=== PATIENT | male | born 1985 | race Caucasian/White ===

== ENCOUNTER 2019-12-21 11:08 | Emergency (ER) | payer BC, OTHER ==
[~2019-12-21] VITALS: Ht 182.9 cm; Wt 127.0 kg
--- NOTE | 2019-12-21 11:26 | NUR ---
ARTISTS' MODEL AT BEDSIDE FOR BLOOD DRAWN.
[2019-12-21 11:32] VITALS: BP 144/100
--- NOTE | 2019-12-21 11:32 | NUR ---
Patient discharged to home in stable condition. Written and verbal after care instructions given. Patient verbalizes understanding of instruction.
[2019-12-22 05:09] LABS: HIV SCRN 4G wRFX Non Reactive (Non Reactive)
== END 2019-12-21 11:32 | disposition home or self-care (01) ==
LOC: ER 11:12
DX: S61.239A Puncture wound without foreign body of unspecified finger without damage to nail, initial encounter (principal); W46.0XXA Contact with hypodermic needle, initial encounter; Y93.89 Activity, other specified; Y92.89 Other specified places as the place of occurrence of the external cause; Y99.8 Other external cause status
CPT/HCPCS: 36415; 86706; 86803

== ENCOUNTER 2019-12-27 18:12 | Emergency (ER) | payer OTHER ==
[~2019-12-27] VITALS: Ht 182.9 cm; Wt 122.5 kg
[2019-12-27 18:17] VITALS: BP 151/92
--- NOTE | 2019-12-27 18:30 | NUR ---
COVID SWAB OBTAINED AND SENT TO LAB.
--- NOTE | 2019-12-27 18:35 | NUR ---
Patient discharged to home in stable condition. Written and verbal after care instructions given. Patient verbalizes understanding of instruction.
== END 2019-12-27 18:46 | disposition home or self-care (01) ==
LOC: ER 18:16
DX: Z03.818 Encounter for observation for suspected exposure to other biological agents ruled out (principal); I10 Essential (primary) hypertension; Z87.891 Personal history of nicotine dependence
CPT/HCPCS: 99283; U0003

== ENCOUNTER 2020-01-23 13:13 | Emergency (ER) | payer OTHER ==
[~2020-01-23] VITALS: Ht 182.9 cm; Wt 122.5 kg
[2020-01-23 13:19] VITALS: BP 135/80
--- NOTE | 2020-01-23 13:52 | NUR ---
PT SWABBED FOR COVID19 TEST. D/C IN STABLE CONDITION.
[2020-01-24 08:15] LABS: HIV SCRN 4G wRFX Non Reactive (Non Reactive)
== END 2020-01-23 13:54 | disposition home or self-care (01) ==
LOC: ER 13:15
DX: Z11.59 Encounter for screening for other viral diseases (principal); T14.8XXD Other injury of unspecified body region, subsequent encounter; W26.8XXD Contact with other sharp object(s), not elsewhere classified, subsequent encounter; Z77.21 Contact with and (suspected) exposure to potentially hazardous body fluids
CPT/HCPCS: 36415; 86706; 86803; 87389; 99283; C9803; U0003

== ENCOUNTER 2020-02-03 17:03 | Emergency (ER) | payer OTHER ==
[~2020-02-03] VITALS: Ht 182.9 cm; Wt 122.5 kg
[2020-02-03 17:13] VITALS: BP 167/97
--- NOTE | 2020-02-03 17:25 | NUR ---
COVID SWAB DONE AND SENT TO LAB
--- NOTE | 2020-02-03 17:26 | NUR ---
Patient discharged to home in stable condition. Written and verbal after care instructions given. Patient verbalizes understanding of instruction. Pt ambulatory with a steady gait
== END 2020-02-03 17:27 | disposition home or self-care (01) ==
LOC: ER 17:04
DX: Z11.59 Encounter for screening for other viral diseases (principal); I10 Essential (primary) hypertension
CPT/HCPCS: 99283; C9803; U0003

== ENCOUNTER 2020-02-15 10:58 | Emergency (ER) | payer OTHER ==
[~2020-02-15] VITALS: Ht 182.9 cm; Wt 122.5 kg
[2020-02-15 11:12] VITALS: BP 145/80
== END 2020-02-15 13:13 | disposition home or self-care (01) ==
LOC: ER 10:59
DX: Z11.59 Encounter for screening for other viral diseases (principal)
CPT/HCPCS: 99283; C9803; U0003

== ENCOUNTER 2020-02-20 16:07 | Emergency (ER) | payer OTHER ==
[~2020-02-20] VITALS: Ht 182.9 cm; Wt 122.5 kg
[2020-02-20 16:12] VITALS: BP 166/87
--- NOTE | 2020-02-20 16:34 | NUR ---
Patient discharged to home in stable condition. Written and verbal after care instructions given. Patient verbalizes understanding of instruction.
== END 2020-02-20 16:34 | disposition home or self-care (01) ==
LOC: ER 16:07
DX: Z11.59 Encounter for screening for other viral diseases (principal); I10 Essential (primary) hypertension
CPT/HCPCS: 99283; C9803; U0003

== ENCOUNTER 2020-02-29 09:14 | Emergency (ER) | payer OTHER ==
[~2020-02-29] VITALS: Ht 182.9 cm; Wt 122.5 kg
[2020-02-29 09:19] VITALS: BP 145/82
== END 2020-02-29 09:41 | disposition home or self-care (01) ==
LOC: ER 09:15
DX: Z03.818 Encounter for observation for suspected exposure to other biological agents ruled out (principal); I10 Essential (primary) hypertension
CPT/HCPCS: 99283; C9803; U0003

== ENCOUNTER 2020-03-05 13:45 | Emergency (ER) | payer OTHER ==
[~2020-03-05] VITALS: Ht 182.9 cm; Wt 90.7 kg
[2020-03-05 13:48] VITALS: BP 145/81
--- NOTE | 2020-03-05 14:05 | NUR ---
Patient discharged to home in stable condition. Written and verbal after care instructions given. Patient verbalizes understanding of instruction.
== END 2020-03-05 14:05 | disposition home or self-care (01) ==
LOC: ER 13:45
DX: Z03.818 Encounter for observation for suspected exposure to other biological agents ruled out (principal); I10 Essential (primary) hypertension
CPT/HCPCS: 99283; C9803; U0003

== ENCOUNTER 2020-03-14 14:50 | Emergency (ER) | payer OTHER ==
[~2020-03-14] VITALS: Ht 182.9 cm; Wt 124.7 kg
[2020-03-14 14:54] VITALS: BP 146/85
== END 2020-03-14 15:10 | disposition home or self-care (01) ==
LOC: ER 14:52
DX: Z20.828 Contact with and (suspected) exposure to other viral communicable diseases (principal); I10 Essential (primary) hypertension
CPT/HCPCS: 99283; C9803; U0003

== ENCOUNTER 2020-03-28 09:03 | Emergency (ER) | payer OTHER ==
[~2020-03-28] VITALS: Ht 182.9 cm; Wt 122.5 kg
[2020-03-28 09:06] VITALS: BP 135/84
== END 2020-03-28 09:33 | disposition home or self-care (01) ==
LOC: ER 09:04
DX: Z20.828 Contact with and (suspected) exposure to other viral communicable diseases (principal)
CPT/HCPCS: 99283; C9803; U0003

== ENCOUNTER 2020-04-02 15:43 | Emergency (ER) | payer OTHER ==
[~2020-04-02] VITALS: Ht 182.9 cm; Wt 122.5 kg
[2020-04-02 15:47] VITALS: BP 133/88
== END 2020-04-02 16:15 | disposition home or self-care (01) ==
LOC: ER 15:44
DX: Z20.828 Contact with and (suspected) exposure to other viral communicable diseases (principal); I10 Essential (primary) hypertension
CPT/HCPCS: 99283; C9803; U0003

== ENCOUNTER 2020-04-15 11:26 | Emergency (ER) | payer OTHER ==
[~2020-04-15] VITALS: Ht 182.9 cm; Wt 124.7 kg
[2020-04-15 11:27] VITALS: BP 135/81
--- NOTE | 2020-04-15 11:56 | NUR ---
COVID TEST COMPLETED SENT TO LAB Patient discharged to home in stable condition. Written and verbal after care instructions given. Patient verbalizes understanding of instruction.
== END 2020-04-15 11:58 | disposition home or self-care (01) ==
LOC: ER 11:28
DX: Z20.828 Contact with and (suspected) exposure to other viral communicable diseases (principal); I10 Essential (primary) hypertension
CPT/HCPCS: 99283; C9803; U0003

== ENCOUNTER 2020-04-30 15:16 | Emergency (ER) | payer OTHER ==
[~2020-04-30] VITALS: Ht 182.9 cm; Wt 122.5 kg
[2020-04-30 15:19] VITALS: BP 132/86
== END 2020-04-30 15:38 | disposition home or self-care (01) ==
LOC: ER 15:16
DX: Z20.828 Contact with and (suspected) exposure to other viral communicable diseases (principal); I10 Essential (primary) hypertension
CPT/HCPCS: 99283; C9803; U0003

== ENCOUNTER 2020-05-09 10:19 | Emergency (ER) | payer OTHER ==
[~2020-05-09] VITALS: Ht 182.9 cm; Wt 122.5 kg
[2020-05-09 10:21] VITALS: BP 137/88
== END 2020-05-09 11:41 | disposition home or self-care (01) ==
LOC: ER 10:20
DX: Z20.828 Contact with and (suspected) exposure to other viral communicable diseases (principal); I10 Essential (primary) hypertension
CPT/HCPCS: 99283; C9803; U0003

== ENCOUNTER 2020-05-14 15:47 | Emergency (ER) | payer OTHER ==
[~2020-05-14] VITALS: Ht 182.9 cm; Wt 122.5 kg
[2020-05-14 15:54] VITALS: BP 132/84
--- NOTE | 2020-05-14 16:16 | NUR ---
COVID SWAB SENT. Patient discharged to home in stable condition. Written and verbal after care instructions given. Patient verbalizes understanding of instruction.
== END 2020-05-14 16:18 | disposition home or self-care (01) ==
LOC: ER 15:49
DX: Z20.828 Contact with and (suspected) exposure to other viral communicable diseases (principal); I10 Essential (primary) hypertension
CPT/HCPCS: 99283; C9803; U0003

== ENCOUNTER 2020-05-23 09:12 | Emergency (ER) | payer OTHER ==
[~2020-05-23] VITALS: Ht 182.9 cm; Wt 121.1 kg
[2020-05-23 09:12] VITALS: BP 127/76
== END 2020-05-23 09:23 | disposition home or self-care (01) ==
LOC: ER 09:13
DX: Z20.828 Contact with and (suspected) exposure to other viral communicable diseases (principal)
CPT/HCPCS: 99283; C9803; U0003

== ENCOUNTER 2020-05-28 11:09 | Emergency (ER) | payer OTHER ==
[~2020-05-28] VITALS: Ht 170.2 cm; Wt 90.7 kg
[2020-05-28 11:14] VITALS: BP 124/77
--- NOTE | 2020-05-28 11:30 | NUR ---
covid swab done and sent to lab
--- NOTE | 2020-05-28 11:31 | NUR ---
Patient discharged to home in stable condition. Written and verbal after care instructions given. Patient verbalizes understanding of instruction. Pt ambulatory with a steady gait
== END 2020-05-28 11:31 | disposition home or self-care (01) ==
LOC: ER 11:11
DX: Z20.828 Contact with and (suspected) exposure to other viral communicable diseases (principal); I10 Essential (primary) hypertension
CPT/HCPCS: 99283; C9803; U0003

== ENCOUNTER 2020-06-06 08:38 | Emergency (ER) | payer OTHER ==
[~2020-06-06] VITALS: Ht 182.9 cm; Wt 122.5 kg
[2020-06-06 08:38] VITALS: BP 132/84
== END 2020-06-06 08:58 | disposition home or self-care (01) ==
LOC: ER 08:45
DX: Z20.828 Contact with and (suspected) exposure to other viral communicable diseases (principal); I10 Essential (primary) hypertension
CPT/HCPCS: 99283; C9803; U0003

== ENCOUNTER 2020-06-11 09:01 | Emergency (ER) | payer OTHER ==
[~2020-06-11] VITALS: Ht 182.9 cm; Wt 122.5 kg
[2020-06-11 09:03] VITALS: BP 137/84
--- NOTE | 2020-06-11 09:22 | NUR ---
Covid swab sent, Patient discharged to home in stable condition. Written and verbal after care instructions given. Patient verbalizes understanding of instruction.
== END 2020-06-11 09:23 | disposition home or self-care (01) ==
LOC: ER 09:04
DX: Z20.828 Contact with and (suspected) exposure to other viral communicable diseases (principal); I10 Essential (primary) hypertension
CPT/HCPCS: 99283; C9803; U0003

== ENCOUNTER 2020-06-25 10:39 | Emergency (ER) | payer OTHER ==
[~2020-06-25] VITALS: Ht 182.9 cm; Wt 122.5 kg
[2020-06-25 10:42] VITALS: BP 137/86
== END 2020-06-25 11:05 | disposition home or self-care (01) ==
LOC: ER 10:44
DX: Z20.828 Contact with and (suspected) exposure to other viral communicable diseases (principal); I10 Essential (primary) hypertension
CPT/HCPCS: 99283; C9803; U0003

== ENCOUNTER 2020-06-30 09:52 | Emergency (ER) | payer OTHER ==
[~2020-06-30] VITALS: Ht 185.4 cm; Wt 124.7 kg
--- NOTE | 2020-06-30 10:27 | NUR ---
Patient discharged to home in stable condition. Written and verbal after care instructions given. Patient verbalizes understanding of instruction.
[2020-06-30 10:28] VITALS: BP 118/72
== END 2020-06-30 10:28 | disposition home or self-care (01) ==
LOC: ER 09:52
DX: Z20.828 Contact with and (suspected) exposure to other viral communicable diseases (principal); I10 Essential (primary) hypertension
CPT/HCPCS: 99283; C9803; U0003